=== PATIENT | male | born 1950 | race Caucasian/White ===

== ENCOUNTER → 2023-06-14 | Outpatient (CLI) | payer MEDICARE, SELFPAY ==
--- OUTSIDE RECORDS SUMMARY | 2023-06-14 18:24 | XMS RPT_ITS | CCD ---
Author Name Unknown Address [address] [place] [address] Organization [facility] Results Test Name Value Interpretation Reference Range Facil ity Encounters Encounter Date Encounter Type Care Provider Facility Start: 05-22-2023 End: 05-22-2023 ambulatory Facility:[facility] Progress note 05-22-2023 Note Date & Type Note Facility 05-22-2023 Note HNO ID: [id number] Author: MAN DAVEY APRN.FLORICULTURE PROFESSOR Service: ? Author Type: Nurse Practitioner Type: Progress Notes Filed: 05/22/2023 09:35 Note Text: This note was created using NoteWriter. Subjective Katie Kc is a 72 year old male. 72 year old male with PMH HTN and hyperlipidemia presents for illness. Acute onset 10 days ago +sore throat + cough +sinus pressure +ear pain +head congestion +bilateral eye redness. +matting bilateral eyelids Denies CP. Denies SOB Denies loss of vision, double vision or blurred vision. +corrective lens, denies contacts Used Mucinex Denies tobacco usage Of note, he endorses that at the time of the onset of symptoms he was disembarking a cruise. The history is provided by the patient. No hourly sign language interpreter was used. URI He complains of cough. There is no chest tightness, difficulty breathing, frequent throat clearing, hemoptysis, hoarse voice, shortness of breath, sputum production or wheezing. This is a new problem. The current episode started 1 to 4 weeks ago. The problem occurs constantly. The problem has been unchanged. The cough is non-productive. Associated symptoms include ear pain, headaches, malaise/fatigue, nasal congestion, postnasal drip, rhinorrhea and a sore throat. Pertinent negatives include no appetite change, chest pain, dyspnea on exertion, ear congestion, fever, heartburn, myalgias, orthopnea, PND, sneezing, sweats, trouble swallowing or weight loss. His symptoms are aggravated by nothing. His symptoms are alleviated by nothing. He reports no improvement on treatment. There are no known risk factors for lung disease. There is no history of asthma,bronchiectasis, bronchitis, COPD, emphysema or pneumonia. 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 MEDICATIONS atorvastatin (LIPITOR) 40 mg tablet Take 1 tablet by mouth every afternoon. folic acid 1 mg tablet Take 1 tablet by mouth every afternoon. metoprolol tartrate, short acting, (LOPRESSOR) 50 mg tablet Take 1 tablet by mouth once daily. ferrous sulfate (IRON) 325 mg (65 mg iron) tablet Take 325 mg by mouth. aspirin 81 mg cap Take 81 tablets by mouth once daily. citalopram (CELEXA) 20 mg tablet Take 20 mg by mouth once daily. losartan (COZAAR) 100 mg tablet Take 50 mg by mouth once daily. MULTIVITAMIN TAB Take one(1) tablet daily. omeprazole(PRILOSEC 20 MG CAP) Take one(1) capsule daily. amoxicillin-clavulanate potassium (AUGMENTIN) 875-125 mg per tablet Take 1 tablet by mouth two times a day for 7 days. trimethoprim-polymyxin (POLYTRIM) 10,000 unit- 1 mg/mL ophthalmic solution Use 1 Drop in both eyes every 4 hours for 7 days. escitalopram oxalate (LEXAPRO) 20 mg tablet Take 1 tablet by mouth once daily. (Patient not taking: Reported on 05/22/2023) aspirin, enteric coated 325 mg EC tablet Take 1 tablet by mouth once daily. (Patient not taking: Reported on 05/22/2023) vitamin b complex (B-COMPLEX) tab Take 1 tablet by mouth once daily. FAMILY HISTORY Problem Relation Age of Onset Coronary Artery Disease Father Hearing Loss Father Social History Tobacco Use Smoking status: Never Substance Use Topics Alcohol use: No Review of Systems Constitutional: Positive for malaise/fatigue. Negative for appetite change, fever and weight loss. HENT: Positive for congestion, ear pain, postnasal drip, rhinorrhea, sinus pressure, sinus pain and sore throat. Negative for hoarse voice, sneezing and trouble swallowing. Eyes: Positive for discharge, redness and itching. Negative for photophobia, pain and visual disturbance. Respiratory: Positive for cough. Negative for hemoptysis, sputum production, shortness of breath and wheezing. Cardiovascular: Negative for chest pain, dyspnea on exertion and PND. Gastrointestinal: Negative for abdominal pain, diarrhea, heartburn, nausea and vomiting. Musculoskeletal: Negative for arthralgias, back pain and myalgias. Skin: Negative for color change, pallor, rash and wound. Allergic/Immunologic: Negative for environmental allergies, food allergies and immunocompromised state. Neurological: Positive for headaches. Negative for dizziness and facial asymmetry. Hematological: Negative for adenopathy. Does not bruise/bleed easily. Psychiatric/Behavioral: Negative for agitation and behavioral problems. Objective BP 157/82 Pulse 67 Temp 36.7 ?C (98.1 ?F) Resp 18 Wt 88.9 kg (196 lb) SpO2 99% Physical Exam Vitals and nursing note re (more content not included)... [facility] Summary Purpose Family History No Family History Records Found Advance Directives No Advanced Directives Records Found Additional Source Comments (unrecognized sect ion and content) No Status Records Found INFORMATION SOURCE (unrecogn ized section and content) FOR RECORDS PERTAINING TO PATIENTS WHO ARE OR HAVE BEEN ENROLLED IN A CHEMICAL DEPENDENCY/SUBSTANCEABUSE PROGRAM, SOME INFORMATION MAY BE OMITTED. This clinical summary was aggregated from multiple sources. Caution should be exercised in using it in the provision of clinical care. This summary normalizes information from multiple sources, and as a consequence, information in this document may materially change the coding, format and clinical context of patient data. In addition, data may be omitted in some cases. CLINICAL DECISIONS SHOULD BE BASED ON THE PRIMARY CLINICAL RECORDS. [employer] provides no warranty or guarantee of the accuracy or completeness of information in this document.
== END | disposition home or self-care (01) ==
LOC: LABSPEC 15:15
PROVIDERS: Referring Provider Otolaryngology; Visit Provider Otolaryngology
DX: J32.8 Other chronic sinusitis (principal)
CPT/HCPCS: 87070; 87077; 87205

== ENCOUNTER → 2025-03-29 | Outpatient (CLI) | payer MEDICARE, OTHER, SELFPAY ==
--- NOTE | 2025-03-29 18:48 | CT_ITS ---
PROCEDURE: SPINE LUMBAR WITHOUT CONTRAST 03/29/2025 REASON FOR EXAM: LUMBAR COMPRESSION FRACTURE TECHNIQUE: Procedure Code: CTSPL Modality: CT Procedure: SPINE LUMBAR WITHOUT CONTRAST Coronal and Sagittal reconstruction series were provided. One or more dose reduction techniques were used (e.g., Automated exposure control, adjustment of the mA and/or kV according to patient size, use of iterative reconstruction technique COMPARISON: March 11, 2025 RADIATION DOSE SUMMARY: CTDlvol: 26 mGy DLP: 1044 mGycm FINDINGS: Vertebrae: Decreased bone mineralization. Grade 1 depression of the superior endplates of L1 and L2. Alignment: Normal lumbar lordosis. No spondylolisthesis. T12-L1: Mild vacuum disc phenomenon. Mild depression superior endplate of L1, grade 1. No significant retropulsion. L1-2: Mild disc space narrowing posteriorly. Mild depression superior endplate of L2, grade 1. No significant retropulsion. L2-3: Mild, diffuse disc bulge. No exit foraminal narrowing. L3-4: Mild, diffuse disc bulge. Mild thickening of ligamentum flavum. Mild facet hypertrophy. Borderline exit foraminal narrowing. Correlate with L3 radiculopathy. L4-5: Mild, diffuse disc bulge and marginal endplate spurring. Hemilaminectomy has been performed on the right. Moderate thickening ligamentum flavum on the left. Mild bilateral facet hypertrophy. Borderline exit foraminal narrowing primarily from facet disease on the left and disc and facet on the right. Correlate with L4 radiculopathy. L5-S1: Normal Sacrum: Normal CT/Spine Lumbar without Contrast IMPRESSION: 1. Multilevel degenerative disc disease. Some exit foraminal narrowing is see n at L3/4 and L4/5. Correlate with L3 radiculopathy and right L4 radiculopathy. 2. Hemilaminectomy on the right at L4/5. 3. Grade 1 compression fractures superior endplates of L1 and L2. No retropul oskar. No change from March 11, 2025. If desired, MRI can be helpful in assessing for bone marrow edema, which can be a source of pain. If present and persistent, vertebral augmentation can be considered. Reading Location: [id number]
--- OUTSIDE RECORDS SUMMARY | 2025-03-29 18:48 | XMS RPT_ITS | CCD ---
Author Organization [facility] Medications Current Medications Medication Drug Class(es) Dates Sig (Normalized) Sig (Original) aspirin 325 mg oral tablet (1 source) Platelet Aggregation Inhibitor, Nonsteroidal Anti-inflammatory Drug Start: 09-22-2015 take 325 mg by mouth once daily Aspirin Active 325 MG PO DAILY@0800 September 21, 2015 11:00pm citalopram 40 mg oral tablet (1 source) Serotonin Reuptake Inhibitor Start: 09-22-2015 take 40 mg by mouth once daily Citalopram Active 40 MG PO DAILY September 21, 2015 11:00pm ferrous sulfate 325 mg oral tablet (1 source) Start: 09-22-2015 take 325 mg by mouth once daily Ferrous Sulfate Active 325 MG PO DAILY@0800 September 21, 2015 11:00pm losartan potassium 100 mg oral tablet (1 source) Angiotensin 2 Receptor Jeannine Start: 09-22-2015 take 100 mg by mouth once daily Losartan Active 100 MG PO DAILY September 21, 2015 11:00pm 24 hr metoprolol succinate 50 mg extended release oral tablet (1 source) beta-Adrenergic Jeannine Start: 09-22-2015 take 50 mg by mouth once daily Metoprolol Succinate Active 50 MG PO DAILY September 21, 2015 11:00pm Mv,Ca,Gre-Ffqy-Cv-Ly copene (Centrum Ultra Men's Tablet) 1 EACH tablet (1 source) Start: 09-22-2015 Mv,Ca,Min-Iron-F a-Lycopene (Centrum Ultra Men's Tablet) 1 EACH tablet Active 1 EACH PO September 21, 2015 11:00pm omeprazole 20 mg delayed release oral capsule (1 source) Proton Pump Inhibitor Start: 09-22-2015 take 20 mg by mouth once daily Omeprazole Active 20 MG PO DAILY September 21, 2015 11:00pm tamsulosin hydrochloride 0.4 mg oral capsule (1 source) alpha-Adrenergic Jeannine Start: 09-22-2015 take 0.4 mg by mouth once daily Tamsulosin Active 0.4 MG PO DAILY September 21, 2015 11:00pm Results Test Name Value Interpretation Reference Range Facility Gram stain for investigation of transfusion reactionOrdered By: Deonte Ellison on 06-14-2023 Microscopic observation Gram stain Nom (Unsp spec) [facility] No Panel InformationOrdered By: Deonte Ellison on 06-14-2023 Nasopharyngeal Culture Haemophilus influenzae [facility] CNOVon 05-22-2023 CNOV Office Visit (UCWSTR) ---- CLAY KC ([id number]) 1950 M Date Time Provider Department 05/22/23 9:00 AM MAN DAVEY [facility] During your visit today, we recorded the following information about you: Temperature Pulse Respiration Blood pressure 98.1 degrees 67/minute 18/minute 157/82 Weight 88.9 kg Man Davey APRN.WIRE MACHINE CUTTER 05/22/2023 9:35 AM Signed This note was created using [employer]Hub[employer]. Subjective Clay Kc is a 72 year old male. [...] history is provided by the patient. No biblical languages professor was used. URI He complains of cough. [...] lung disease. There is no history of asthma, bronchiectasis, bronchitis, COPD, emphysema or pneumonia. PAST MEDICAL [...] 20 MG CAP) Take one(1) capsule daily. amoxicillin-clavula brenda potassium (AUGMENTIN) 875-125 mg per tablet Take 1 tablet by mouth two times a day for 7 days. trimethoprim-polymy julio cesar (POLYTRIM) 10,000 unit- 1 mg/mL ophthalmic solution [...] for color change, pallor, rash and wound. Allergic/Immunologi c: Negative for environmental allergies, food allergies and immunocompromised state. Neurological: Positive for headaches. Negative for dizziness and facial asymmetry. H (more content not included)... Normal [facility] Encounters Encounter Date Encounter Type Care Provider Facility Start: 06-14-2023 End: [facility] [facility]: Start: 06-14-2023 End: 06-14-2023 Patient encounter procedure [facility], Specimen Work Phone: Start: 05-22-2023 End: 05-22-2023 ambulatory Facility:[facility] Procedures Date Procedure Procedure Detail Performing Clinician Start: 06-14-2023 Investigation of tra nsfusion reaction Start: 06-14-2023 Nasopharyngeal Culture Payers Date Payer Category Payer Unknown [facility] [id number] 2015 Medicare MEDICARE PART A B [id number] 2005 Unknown IVAN [id number] Unknown [facility] [id number] Social History Date Type Detail Facility Start: 09-22-2015 Tobacco smoking stat NHIS Unknown if ever smoked [facility] Start: 1950 Sex Assigned At Male W [facility] Progress note 05-22-2023 Note Date & Type Note Facility 05-22-2023 Note HNO ID: [id number] Author: MAN DAVEY APRN.WIRE MACHINE CUTTER Service: ? Author Type: Nurse Practitioner Type: Progress Notes Filed: 05/22/2023 09:35 Note Text: This note was created using [employer]Hub[employer]. Subjective Clay Kc is a 72 year old male. [...] history is provided by the patient. No biblical languages professor was used. URI He complains of cough. [...] BIOPSY SINGLE/MULTIPLE 08/21/13 PAST SURGICAL HISTORY OF 2006,2008 heart stents x4 TONSILLECTOMY PRIMARY/SECONDARY Tonsillectomy ALLERGIES [...] nursing note re (more content not included)... [facility] Evaluation note Note Date & Type Note Facility Evaluation note No assessment information availa [facility] Work Phone: Summary Purpose Family History No Family History Records Found Advance Directives Advance Directive Response Recorded Date/ Time Advance Directives No September 21 6 4:03pm Living Will No September 22, 2015 4 :03pm Power of Power Brake Operator No September 22, 2015 4:03pm Additional Source Comments (unrecognized sect ion and content) No Status Records Found INFORMATION SOURCE (unrecogn ized section and content) DATE CREATED AUTHOR 05/23/2023 [facility] Care Teams (unrecognized sec tion and content) Team Status: Active Member Role Status Dates No Primary Care Physician Family Provider Active No Primary Care Physician Primary Care Provider Active Team Status: Inactive Member Role Status Dates No Primary Care Physician Primary Care Provider Active Dr. Deonte Ellison MD Attending Provider, Refe rring Provider Active Goals (unrecognized section and content) Goals may be documented in a n alternate section FOR RECORDS PERTAINING TO PATIENTS WHO ARE [...] BE BASED ON THE PRIMARY CLINICAL RECORDS. [employer] [facility]. provides no warranty or guarantee of the accuracy or completeness of information in this document.
== END | disposition home or self-care (01) ==
LOC: CT 18:45
PROVIDERS: PCP Internal Medicine; Referring Provider Internal Medicine; Visit Provider Internal Medicine
DX: S32.000A Wedge compression fracture of unspecified lumbar vertebra, initial encounter for closed fracture (principal)
CPT/HCPCS: 72131

== ENCOUNTER → 2025-03-29 | Outpatient (CLI) | payer MEDICARE, OTHER, SELFPAY ==
[2025-03-29 13:05] LABS: Microalbumin,Random Urine 137.0 mg/L (<20 mg/L)
[2025-03-29 13:06] LABS: AST(SGOT) 25 U/L (<=37); Alanine Aminotransfer ALT/SGPT 54 U/L (<=46); Albumin, Serum 4.3 g/dL (3.4-4.8); Alkaline Phosphatase 63 U/L (40-129); Anion Gap 7 (5-15); BUN 17 mg/dL (4-19); BUN/Creat Ratio 14.4 RATIO (10-20); Calcium,Total 9.3 mg/dL (7.6-11.0); Carbon Dioxide 28.8 mmol/L (21.0-32.0); Chloride 106 mmol/L (98-108); Follicle Stimulating Hormone 10.8 mIU/mL; Globulin 1.6 g/dL (2.2-4.2); Glucose 119 mg/dL (70-99); Potassium 4.6 mmol/L (3.3-5.1)
== END | disposition home or self-care (01) ==
LOC: CIMLAB 09:50
PROVIDERS: PCP Internal Medicine; Referring Provider Internal Medicine; Visit Provider Internal Medicine
DX: N52.9 Male erectile dysfunction, unspecified (principal); R80.9 Proteinuria, unspecified
CPT/HCPCS: 36415; 80053; 82043; 83001; 83002; 84402